=== PATIENT | female | born 1995 | race Caucasian/White ===

== ENCOUNTER 2021-01-04 22:44 | Emergency (ER) | payer MEDICAID ==
[~2021-01-04] VITALS: Ht 162.6 cm; Wt 57.1 kg
--- NOTE | 2021-01-04 23:11 | PHYS DOC ---
Past History Past Medical History: No Pertinent History Past Surgical History: No Surgical History Alcohol Use: None General Adult EDM: Chief Complaint: VAGINAL BLEEDING HPI: HPI: ".. I had a peroid on the .. but I seemed be having another period tonight... and some cramping..." Patient is a 25 year old female who presents with above hx and dysfunctional uterine bleeding. Patient denies previous problems dysfunctional uterine bleeding. No history of trauma. No history of coagulopathy. Does take ibuprofen but not excessively. Patient denies any recent viral infections. Patient has had 1 lifetime sex partners. No history of STDs.. Previous Pap exams have been negative as of one and 1/2 years ago. Patient does have some lower pelvic cramping as if she is having it. Patient has some localization of pain to the left. No history of prior ovarian cyst. Last was a year and a half ago. Review of Systems: Review of Systems: Constitutional: Denies fever or chills Eyes: Denies change in visual acuity HENT: Denies nasal congestion or sore throat Respiratory: Denies cough or shortness of breath Cardiovascular: Denies chest pain or edema GI: Complains of abdominal pain, and vaginal bleeding. Denies nausea, vomiting, bloody stools or diarrhea : Denies dysuria Musculoskeletal: Denies back pain or joint pain Integument: Denies rash Neurologic: Denies headache, focal weakness or sensory changes Endocrine: Denies polyuria or polydipsia Lymphatic: Denies swollen glands Psychiatric: Denies depression or anxiety Family History: Family History: Noncontributory to presentation Current Medications: Current Meds: See nursing for home meds Allergies: Allergies: Allergies Coded Allergies Type Severity Reaction Last Updated Verified No Known Drug Allergies 01/04/21 No Physical Exam: PE: Constitutional: Well developed, well nourished, no acute distress, non-toxic appearance. [] HENT: Normocephalic, atraumatic, bilateral external ears normal, oropharynx moist, no oral exudates, nose normal. [] Eyes: PERRLA, EOMI, conjunctiva normal, no discharge. [] Neck: Normal range of motion, no tenderness, supple, no stridor. [] Cardiovascular:Heart rate regular rhythm, no murmur [] Lungs & Thorax: Bilateral breath sounds clear to auscultation [] Abdomen: Bowel sounds normal, soft, no tenderness, no masses, no pulsatile masses. [] Skin: Warm, dry, no erythema, no rash. [] Back: No tenderness, no CVA tenderness. [] Extremities: No tenderness, no cyanosis, no clubbing, ROM intact, no edema. [] Neurologic: Alert and oriented X 3, normal motor function, normal sensory function, no focal deficits noted. [] Psychologic: Affect normal, judgement normal, mood normal. [] Current Patient Data: Labs: Laboratory Tests Test 01/04/21 23:02 POC Urine HCG, Qualitative hcg negative (Negative) Vital Signs: Vital Signs Date Time Temp Pulse Resp B/P (MAP) Pulse Ox O2 Delivery O2 Flow Rate FiO2 01/04/21 23:05 97.6 104 16 155/99 (117) 100 Room Air EKG: EKG: [] Radiology/Procedures: Radiology/Procedures: [][place] [address] IMAGING REPORT Signed PATIENT: CINDY MICHELLE ACCOUNT: [id number] : 1995 LOCATION: ER AGE: 25 SEX: F EXAM STATUS: REG ER ORD. PHYSICIAN: KAY EDEN MD REASON: Eval. Ovarian cyst Lt.; Heavy Menses-LT pelvic pain PROCEDURE: US PELVIS Ultrasound pelvis complete HISTORY: Heavy menses is and left pelvic pain Sonographic examination of the pelvis was performed by transabdominal technique. Multiple static images were obtained. The uterus appears normal. The endometrium measures 3 mm in thickness. The ovaries appear normal with normal blood flow. The right ovary measures 3.4 x 2.0 x 2.2 cm. The left ovary measures 3.1 x 2.3 x 1.7 cm. IMPRESSION: Negative examination. Electronically signed by: Holly Qureshi III, MD (01/05/2021 12:45 AM) [facility] DICTATED AND SIGNED BY: HOLLY QURESHI III, MD DATE: 01/05/21 0044 CC: KAY EDEN MD; PCP,NO ~MTH0 0 Heart Score: C/O Chest Pain: N/A Risk Factors: Risk Factors: DM, Current or recent (<one month) smoker, HTN, HLP, family history of CAD, obesity. Risk Scores: Score 0 - 3: 2.5% MACE over next 6 weeks - Discharge Home Score 4 - 6: 20.3% MACE over next 6 weeks - Admit for Clinical Observation Score 7 - 10: 72.7% MACE over next 6 weeks - Early Invasive Strategies Course & Med Decision Making: Course & Med Decision Making Pertinent Labs and Imaging studies reviewed. (See chart for details). Patient to continue pad counts. Patient follow-up pending cultures. Patient follow-up primary care. Patient follow-up with [facility] [facility]. Consider repeat Kyle Pap exam. Review ED work-up with primary care. May take Tylenol and ibuprofen for pain. Impression; 1. Dysfunctional uterine bleeding [] Dragon Disclaimer: Dragon Disclaimer: This electronic medical record was generated, in whole or in part, using a voice recognition dictation system. Departure Departure: Referrals: PCP,NO (PCP) Dragon Disclaimer This chart was dictated in whole or in part using Voice Recognition software in a busy, high-work load, and often noisy Emergency Department environment. It may contain unintended and wholly unrecognized errors or omissions. Dragon Disclaimer This chart was dictated in whole or in part using Voice Recognition software in a busy, high-work load, and often noisy Emergency Department environment. It may contain unintended and wholly unrecognized errors or omissions. KAY EDEN MD January 04, 2021 23:11
[2021-01-04] MEDS ORDERED: IV RINGERS SOLUTION,LACTATED 1,000 ML IV SCH (23:45)
[2021-01-04 23:49] LABS: BARBITURATES NEG (NEG); BENZODIAZEPINES NEG (NEG); CANNABINOIDS NEG (NEG); COCAINE NEG (NEG); METHADONE NEG (NEG); OPIATES NEG (NEG); PHENCYCLIDINE NEG (NEG)
[2021-01-04 23:50] LABS: AMPHETAMINE/METHAMPHETAMINE NEG (NEG)
[2021-01-04 23:56] LABS: BASO % 0 % (0-3); EOS # 0.1 x10^3/uL (0.0-0.7); EOS % 1 % (0-3); HEMATOCRIT 37.3 % (36.0-47.0); HEMOGLOBIN 12.5 g/dL (12.0-15.5); LYMPH # 2.6 x10^3/uL (1.0-4.8); LYMPH % 41 % (24-48); MEAN CORPUSCULAR HEMOGLOBIN 29 pg (25-35); MEAN CORPUSCULAR HGB CONC 34 g/dL (31-37); MEAN CORPUSCULAR VOLUME 86 fL (79-100); MONO # 0.5 x10^3/uL (0.0-1.1); MONO % 8 % (0-9); NEUT # 3.1 x10^3uL (1.8-7.7); NEUT % 49 % (31-73); PLATELET COUNT 229 x10^3/uL (140-400); RED BLOOD COUNT 4.33 x10^6/uL (3.50-5.40); RED CELL DISTRIBUTION WIDTH 13.1 % (11.5-14.5); WHITE BLOOD COUNT 6.3 x10^3/uL (4.0-11.0)
[2021-01-05 00:08] LABS: CALCIUM 8.6 mg/dL (8.5-10.1); CREATININE 0.5 mg/dL (0.6-1.0); GFR 152.9; POTASSIUM 3.9 mmol/L (3.5-5.1)
[2021-01-05 00:14] LABS: ALBUMIN 3.7 g/dL (3.4-5.0); DIRECT BILIRUBIN 0.1 mg/dL (0.0-0.2); TOTAL BILIRUBIN 0.2 mg/dL (0.2-1.0)
[2021-01-05] MEDS ORDERED: KETOROLAC 30 MG/ML VIAL. IVP ONE (00:30)
[2021-01-05 00:32] LABS: BILIRUBIN,URINE NEG (NEG); CLARITY,URINE CLEAR; COLOR,URINE YELLOW; GLUCOSE,URINE NEG (NEG)
[2021-01-05 00:33] LABS: NITRITE,URINE NEG (NEG)
[2021-01-05 00:35] LABS: BACTERIA,URINE 0 /HPF (0-FEW); RBC,URINE 20-40 /HPF (0-2); SQUAMOUS EPITHELIAL CELL,UR OCC /LPF; WBC,URINE 0 /HPF (0-4)
--- NOTE | 2021-01-05 00:48 | RAD ---
Ultrasound pelvis complete HISTORY: Heavy menses is and left pelvic pain Sonographic examination of the pelvis was performed by transabdominal technique. Multiple static imag es were obtained. The uterus appears normal. The endometrium measures 3 mm in thickness. The ovaries appear normal with normal blood flow. The right ovary measures 3.4 x 2.0 x 2.2 cm. The left ovary measures 3.1 x 2.3 x 1.7 cm. IMPRESSION: Negative examination. Electronically signed by: Prakash Pierson III, MD (01/05/2021 12:45 AM) [facility]
[2021-01-05 01:50] VITALS: BP 127/57
[2021-01-06 17:10] LABS: CHLAMYDIA PROBE Negative (Negative)
== END 2021-01-05 01:50 | disposition home or self-care (01) ==
LOC: ER 22:44
DX: N93.8 Other specified abnormal uterine and vaginal bleeding (principal); R10.2 Pelvic and perineal pain
CPT/HCPCS: 76856; 80048; 80076; 80307; 81001; 81025; 85025; 85610; 85730; 87491; 87591; 96361; 96374; 99284; J1885; J7120; Q0111

== ENCOUNTER 2021-04-26 12:16 | Emergency (ER) | payer MEDICAID ==
[~2021-04-26] VITALS: Ht 162.6 cm; Wt 60.0 kg
[2021-04-26 12:21] VITALS: BP 150/104
[2021-04-26] MEDS ORDERED: IBUPROFEN 600 MG TABLET. PO ONE (13:00)
--- NOTE | 2021-04-26 13:11 | PHYS DOC ---
Past History Past Medical History: No Pertinent History (YAQUELIN SANZ APRN) Past Surgical History: No Surgical History (YAQUELIN SANZ APRN) Alcohol Use: None (YAQUELIN SANZ APRN) General Adult EDM: Chief Complaint: DENTAL PROBLEM HPI: HPI: Patient is a 25-year-old female who presents with left-sided throat pain. Patient states that she had 2 teeth pulled this morning and the pain started about an hour ago. Patient was given a dental block and that has started to wear off. Patient denies trouble swallowing, shortness of breath, maintaining secretions on her own. Patient is also reporting pain, 6/10. Patient took a hydrocodone prior to arrival. Denies any medical history. (YAQUELIN SANZ APRN) Review of Systems: Review of Systems: Constitutional: Denies fever or chills Eyes: Denies change in visual acuity HENT: Reports sore throat and left-sided dental pain Respiratory: Denies cough or shortness of breath Cardiovascular: Denies chest pain or edema GI: Denies abdominal pain, nausea, vomiting, bloody stools or diarrhea : Denies dysuria Musculoskeletal: Denies back pain or joint pain Integument: Denies rash Neurologic: Denies headache, focal weakness or sensory changes Endocrine: Denies polyuria or polydipsia Lymphatic: Denies swollen glands Psychiatric: Denies depression or anxiety (YAQUELIN SANZ APRN) Allergies: Allergies: Allergies Coded Allergies Type Severity Reaction Last Updated Verified No Known Drug Allergies 01/04/21 No (YAQUELIN SANZ APRN) Physical Exam: PE: Constitutional: Well developed, well nourished, no acute distress, non-toxic appearance. [] HENT: Normocephalic, atraumatic, bilateral external ears normal, oropharynx moist, no oral exudates, nose normal. [] Eyes: PERRLA, EOMI, conjunctiva normal, no discharge. [] Neck: Normal range of motion, no tenderness, supple, no stridor. [] Cardiovascular:Heart rate regular rhythm, no murmur [] Lungs & Thorax: Bilateral breath sounds clear to auscultation [] Abdomen: Bowel sounds normal, soft, no tenderness, no masses, no pulsatile masses. [] Skin: Warm, dry, no erythema, no rash. [] Back: No tenderness, no CVA tenderness. [] Extremities: No tenderness, no cyanosis, no clubbing, ROM intact, no edema. [] Neurologic: Alert and oriented X 3, normal motor function, normal sensory function, no focal deficits noted. [] Psychologic: Affect normal, judgement normal, mood normal. [] (YAQUELIN SANZ APRN) Current Patient Data: Vital Signs: Vital Signs Date Time Temp Pulse Resp B/P (MAP) Pulse Ox O2 Delivery O2 Flow Rate FiO2 04/26/21 12:21 98.1 111 18 150/104 (119) 99 Room Air (YAQUELIN SANZ APRN) EKG: EKG: [] (YAQUELIN SANZ APRN) Radiology/Procedures: Radiology/Procedures: [] (YAQUELIN SANZ APRN) Heart Score: C/O Chest Pain: No Risk Factors: Risk Factors: DM, Current or recent (<one month) smoker, HTN, HLP, family history of CAD, obesity. Risk Scores: Score 0 - 3: 2.5% MACE over next 6 weeks - Discharge Home Score 4 - 6: 20.3% MACE over next 6 weeks - Admit for Clinical Observation Score 7 - 10: 72.7% MACE over next 6 weeks - Early Invasive Strategies (YAQUELIN SANZ APRN) Course & Med Decision Making: Course & Med Decision Making Pertinent Labs and Imaging studies reviewed. (See chart for details) [] Patient is 25-year-old female presents with left-sided throat pain after having 2 teeth pulled this morning. Patient took hydrocodone prior to arrival. Rating pain 6/10. Patient given Motrin. Advised patient that she should be t aking medication prescribed by the dentist and also Motrin at home for pain. Advised patient to call her dentist for further recommendation. Patient denies having trouble swallowing, shortness of breath, swelling, maintaining secretions. (YAQUELIN SANZ APRN) Course & Med Decision Making I was the Attending physician on the above date of service of this patient. This patient was evaluated, examined, treated, and dispositioned from the emergency department by the mid-level practitioner. Although I was working at the time , no assistance was requested. Electronically signed, Wili Lockwood DO (WILI LOCKWOOD DO) Ivy Disclaimer: Ivy Disclaimer: This electronic medical record was generated, in whole or in part, using a voice recognition dictation system. (YAQUELIN SANZ APRN) Departure Departure: Impression: Primary Impression: Pain, dental Disposition: HOME / SELF CARE / HOMELESS Condition: STABLE Referrals: PCP,NO (PCP) Patient Instructions: Dental Pain, [id number] Additional Instructions: Please call your dentist for further recommendation. Return to emergency room if you are having trouble maintaining her secretions, shortness of breath or any other worsening symptoms or concerns. Motrin will also help with pain. Continue taking hydrocodone as directed. EMERGENCY DEPARTMENT GENERAL DISCHARGE INSTRUCTIONS Thank you for coming to [facility] (ED) today and trusting us with you care. We trust that you had a positivie experience in our Emergency Department. If you wish to speak to the department management, you may call the director at [phone]. YOUR FOLLOW UP INSTRUCTIONS ARE FOLLOWS: 1. Do you have a private Doctor? If you do not have a private doctor, please ask for a resource list of physicians or clinics that may be able to assist you with follow up care. 2. The Emergency Physician has interpreted your x-rays. The X-Ray specialist will also review them. If there is a change in the findings, you will be notified in 48 hours when at all possible. 3. A lab test or culture has been done, your results will be reviewed and you will be notified if you need a change in treatment. ADDITIONAL INSTRUCTIONS AND INFORMATION: 1. Your care today has been supervised by a physician who is specially trained in emergency care. Many problems require more than one evaluation for a complete diagnosis and treatment. We recommend that you schedule your follow up appointment as recommended to ensure complete treatment of you illness or injury. If you are unable to obtain follow up care and continue to have a problem, or if your condition worsens, we recommend that you return to the ED. 2. We are not able to safely determine your condition over the phone nor are we able to give sound medical advice over the phone. For these safety reasons, if you call for medical advice we will ask you to come to the ED for further evaluation. 3. If you have any questions regarding these discharge instructions please call the ED at [phone]. SAFETY INFORMATION: In the interest of safety, wellness, and injury prevention; we encourage you to wear your sealbelt, if you smoke; quite smoking, and we encourage family to use a protective helmet for bicycling and other sporting events that present an increased risk for head injury. IF YOUR SYMPTOMS WORSEN OR NEW SYMPTOMS DEVELOP, OR YOU HAVE CONCERNS ABOUT YOUR CONDITION; OR IF YOUR CONDITION WORSENS WHILE YOU ARE WAITING FOR YOUR FOLLOW UP APPOINTMENT; EITHER CONTACT YOUR PRIMARY CARE DOCTOR, THE PHYSICIAN WHOSE NAME AND NUMBER YOU WERE GIVEN, OR RETURN TO THE ED IMMEDIATELY. YAQUELIN SANZ APRN Apr 26, 2021 13:11 WILI LOCKWOOD DO Apr 27, 2021 06:25
== END 2021-04-26 13:18 | disposition home or self-care (01) ==
LOC: ER 12:16
DX: K08.89 Other specified disorders of teeth and supporting structures (principal); J02.9 Acute pharyngitis, unspecified
CPT/HCPCS: 99282

== ENCOUNTER 2021-06-30 09:39 | Emergency (ER) | payer MEDICAID ==
[~2021-06-30] VITALS: Ht 165.1 cm; Wt 58.3 kg
--- NOTE | 2021-06-30 10:13 | PHYS DOC ---
Past History Past Medical History: No Pertinent History Past Surgical History: No Surgical History Smoking: Non-smoker Alcohol Use: Rarely Drug Use: None Adult General Chief Complaint Chief Complaint: DIZZY/LIGHT HEADED HPI HPI Patient is a 26-year-old female presenting today for dizziness and lightheadedness that has been going on for the last 3 days, has not experienced this problem before. Indicates that it only occurs after work, when she is concentrating, and when she is preparing to eat. She also experiences perioral numbness and nausea, but has not vomited at this time. Denies changes to her eating habits. Denies fevers, chills, vision changes, headaches, syncope, chest pain. Remaining active seems to help during these episodes, while sitting down makes them worse. Believes that she has undiagnosed anxiety, has experienced an increase in stress as of the last year. Review of Systems Review of Systems Fourteen body systems of review of systems have been reviewed. See HPI for pertinent positives and negative responses, other tam all other systems are negative, non-pertinent or non-contributory Current Medications Current Medications No medications Allergies Allergies Allergies Coded Allergies Type Severity Reaction Last Updated Verified No Known Drug Allergies 06/30/21 No Physical Exam Physical Exam Constitutional: Well developed, well nourished, no acute distress, non-toxic appearance. HENT: Normocephalic, atraumatic, bilateral external ears normal, oropharynx moist, no oral exudates, nose normal. Eyes: PERRLA, EOMI, conjunctiva normal, no discharge. Neck: Normal range of motion, no tenderness, supple, no stridor. Cardiovascular: Heart rate regular, sinus rhythm, no murmurs rubs or gallops Lungs & Thorax: Bilateral breath sounds clear to auscultation Abdomen: Bowel sounds normal, soft, no tenderness, no masses, no pulsatile masses. Nonsurgical abdomen, no peritoneal signs Skin: Warm, dry, no erythema, no rash. Back: No tenderness, no CVA tenderness. Extremities: No tenderness, no cyanosis, no clubbing, ROM intact, no edema. Neurologic: Alert and oriented X 3, grossly normal motor & sensory function, no focal deficits noted. Psychologic: Affect normal, judgement normal, mood normal. Current Patient Data Vital Signs Vital Signs Date Time Temp Pulse Resp B/P (MAP) Pulse Ox O2 Delivery O2 Flow Rate FiO2 06/30/21 09:51 98.3 109 18 149/103 (118) 99 Room Air Lab Results Current Medications Medications (Trade) Dose Ordered Sig/Dewayne Route PRN Reason Start Time Stop Time Status Last Admin Dose Admin Hydroxyzine HCl (Atarax) 25 mg PRN Q6HRS PRN PO ITCHING 06/30/21 10:30 06/30/21 11:16 DC 06/30/21 10:37 EKG EKG EKG ordered and interpreted by myself at 1015 hrs. as sinus tachycardia at 106 bpm, unremarkable intervals, no axis deviation, no ischemic findings, no STEMI Radiology/Procedures Radiology/Procedures [] Heart Score C/O Chest Pain: No HEART Score for Chest Pain: HEART Score for Chest Pain Response (Comments) Value History Slighlty/Non-Suspicious 0 ECG Normal 0 Age < 45 0 Risk Factors No Risk Factors 0 Total 0 Risk Factors: Risk Factors: DM, Current or recent (<one month) smoker, HTN, HLP, family hist ory of CAD, obesity. Risk Scores: Risk Factors: DM, Current or recent (<one month) smoker, HTN, HLP, family history of CAD, obesity. Course & Med Decision Making Course & Med Decision Making ABCs unremarkable HPI and comprehensive physical exam nonconcerning for any emergent or surgical issues No indication for further diagnostic ER workup, intervention, or hospitalization at this time Discussed most likely diagnosis of anxiety. Patient symptoms improved with p.o. hydroxyzine I discussed she would likely benefit from a long-term medication such as an SSRI and outpatient therapy, she is currently in the process of establishing care with a local primary care physician and provider. Resources given for both today Joint decision made given asymptomatic state with improvement in anxiety to discharge home with continued use of the hydroxyzine as needed and close outpatient follow-up for continued care Ivy Disclaimer Ivy Disclaimer This electronic medical record was generated, in whole or in part, using a voice recognition dictation system. Departure Departure: Impression: Primary Impression: Anxiety Disposition: HOME / SELF CARE / HOMELESS Condition: STABLE Referrals: [facility] (PCP) Additional Instructions: You were seen in the ED for evaluation of anxiety. Anxiety is a serious medical condition with unfortunate effects on daily living. You should utilize the attached resources to contact a local primary care provider for close outpatient follow-up and management of your symptoms. As discussed you would likely benefit from a classic medications called SSRIs. In the meantime, please use prescribed medication as needed for acute anxious spells. If any concerning signs or symptoms present prior to outpatient follow-up please do not hesitate to come back for repeat evaluation. Is a pleasure to take care of you and I wish you the best going forward Scripts Hydroxyzine Hcl (HYDROXYZINE HCL) 25 Mg Tablet 1 TAB PO TID for anxiety, #30 TAB Prov: WILI LOCKWOOD DO 06/30/21 WILI LOCKWOOD DO Jun 30, 2021 10:13
[2021-06-30] MEDS ORDERED: hydrOXYzine HCL 25 MG TABLET PO PRN (10:30)
--- NOTE | 2021-06-30 10:51 | EKG ---
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
[2021-06-30] MEDS ORDERED: HYDR25TA PO (10:56)
[2021-06-30 11:14] VITALS: BP 126/76
[2021-06-30 11:53] LABS: BACTERIA,URINE 0 /HPF (0-FEW); BILIRUBIN,URINE NEG (NEG); CLARITY,URINE CLEAR; COLOR,URINE YELLOW; GLUCOSE,URINE NEG (NEG); NITRITE,URINE NEG (NEG); RBC,URINE OCC /HPF (0-2); SQUAMOUS EPITHELIAL CELL,UR MOD /LPF
== END 2021-06-30 11:15 | disposition home or self-care (01) ==
LOC: ER 09:39
DX: F41.9 Anxiety disorder, unspecified (principal)
CPT/HCPCS: 81001; 81025; 82947; 93005; 99284